=== PATIENT | female | born 1985 | race Two or more races ===

== ENCOUNTER 2016-08-08 07:22 | Emergency (ER) | payer SELFPAY ==
[~2016-08-08] VITALS: Ht 152.4 cm; Wt 90.7 kg
--- NOTE | 2016-08-08 07:40 | NUR ---
PRESENTS SELF TO ED DUE TO HEADACHE SP FALL THIS AM. NO KO. PATIENT IS AAO4. APPEARS IN NO APPARENT DISTRESS, RESPIRATION EVEN AND UNLABORED,. NO SOB NO CHEST PAIN. SKIN IS WARM TO TOUCH AND NON DIAPHORETIC. PATIENT IS AFEBRILE. PORTACATH NOTED ON RCW. VSS
[2016-08-08] MEDS ORDERED: diphenhydrAMINE HCL 50 MG/ML VIAL ONE ×2 (07:47→09:33)
[2016-08-08] MEDS ORDERED: HYDROMORPHONE INJ 2 MG/ML DISP.SYRIN ONE ×2 (07:47→09:33)
[2016-08-08] MEDS ORDERED: IV NS 0.9% 500 ML IV ONE (07:47)
[2016-08-08] MEDS: HYDROMORPHONE INJ 2 MG/ML DISP.SYRIN IV ONE ×2 (08:03→09:41)
[2016-08-08] MEDS: IV NS 0.9% 500 ML BAG IV ONE (08:03)
[2016-08-08] MEDS: diphenhydrAMINE HCL 50 MG/ML VIAL IV ONE ×2 (08:03→09:41)
[2016-08-08 08:18] LABS: BASOPHILS % (AUTO) 0.5 % (0.0-2.0); EOSINOPHILS % (AUTO) 0.4 % (0.0-6.0); HEMATOCRIT 30 % (33-45); HEMOGLOBIN 9.6 g/dL (11.5-14.8); LYMPHOCYTES # (AUTO) 0.8 /CMM (0.8-4.8); LYMPHOCYTES % (AUTO) 25.1 % (20.0-44.0); MEAN CORPUSCULAR HEMOGLOBIN 30 PG (26.0-33.0); MEAN CORPUSCULAR HGB CONC 33 g/dl (31.0-36.0); MEAN CORPUSCULAR VOLUME 92 fL (82-100); MONOCYTES # (AUTO) 0.3 /CMM (0.1-1.30); MONOCYTES % (AUTO) 9.3 % (2.0-12.0); NEUTROPHILS # (AUTO) 2.1 /CMM (1.8-8.9); NEUTROPHILS % (AUTO) 64.7 % (43.0-81.0); PLATELET COUNT (AUTO) 287 /CMM (150-450); RDW COEFFICIENT OF VARIATION 21.8 (11.5-15.0); RED BLOOD CELL COUNT(AUTO) 3.22 MIL/uL (4.0-5.2); WHITE BLOOD COUNT (AUTO) 3.3 K/uL (4.3-11.0)
[2016-08-08 08:29] LABS: CALCIUM, SERUM 8.2 mg/dL (8.5-10.1); CREATININE 0.6 mg/dL (0.6-1.3); POTASSIUM 3.4 mmol/L (3.5-5.1)
[2016-08-08 08:35] LABS: ALBUMIN 3.4 g/dL (3.4-5.0); BILIRUBIN,DIRECT 0.3 mg/dL (0.0-0.2); BILIRUBIN,TOTAL 0.7 mg/dL (0.2-1.0); TOTAL PROTEIN, SERUM 7.2 g/dL (6.4-8.2)
[2016-08-08 08:46] LABS: INR 1.01 (0.87-1.13); PROTHROMBIN TIME 10.8 SECS (9.5-12.7)
--- NOTE | 2016-08-08 10:11 | NUR ---
PT TO CT FOR CT HEAD
--- NOTE | 2016-08-08 10:29 | NUR ---
Pt still in ct
[2016-08-08 11:10] VITALS: BP 130/70
--- NOTE | 2016-08-08 11:11 | NUR ---
Patient discharged to home in stable condition. Written and verbal after care instructions given. Patient verbalizes understanding of instruction.
== END 2016-08-08 11:13 | disposition home or self-care (01) ==
LOC: ER 07:23
DX: D57.00 Hb-SS disease with crisis, unspecified (principal); I50.9 Heart failure, unspecified; I25.2 Old myocardial infarction; Z86.73 Personal history of transient ischemic attack (TIA), and cerebral infarction without residual deficits; S09.90XA Unspecified injury of head, initial encounter; W01.0XXA Fall on same level from slipping, tripping and stumbling without subsequent striking against object, initial encounter; Y93.89 Activity, other specified; Y92.89 Other specified places as the place of occurrence of the external cause; Y99.8 Other external cause status
CPT/HCPCS: 36415; 70450-TC; 80048-TC; 80076-TC; 85025-TC; 85730-TC; A4606; J1170; J1200; J7040; Z7610